=== PATIENT | female | born 1980 | race Caucasian/White ===

== ENCOUNTER 2019-05-30 09:16 | Emergency (ER) | payer BC ==
[~2019-05-30] VITALS: Ht 162.6 cm; Wt 63.5 kg
--- NOTE | 2019-05-30 09:20 | NUR ---
Attempted to triage pt, pt was not found in ER waiting room.
--- NOTE | 2019-05-30 09:47 | NUR ---
ERMD at bedside for MSE
[2019-05-30] MEDS ORDERED: METR500T PO (09:52)
[2019-05-30] MEDS ORDERED: AMOX500C2 PO (09:52)
[2019-05-30 09:58] LABS: BASOPHILS % (AUTO) 0.5 % (0.0-2.0); HEMATOCRIT 42.6 % (31.2-41.9); HEMOGLOBIN 13.7 g/dL (10.9-14.3); LYMPHOCYTES # (AUTO) 0.7 K/uL (20.0-40.0); LYMPHOCYTES % (AUTO) 7.9 % (20.5-51.5); MEAN CORPUSCULAR HEMOGLOBIN 26.3 uug (24.7-32.8); MEAN CORPUSCULAR HGB CONC 32 g/dL (32.3-35.6); MEAN CORPUSCULAR VOLUME 81.7 fL (75.5-95.3); MONOCYTES # (AUTO) 0.2 K/uL (2.0-10.0); MONOCYTES % (AUTO) 2.8 % (0.0-11.0); NEUTROPHILS # (AUTO) 7.4 K/uL (1.8-8.9); NEUTROPHILS % (AUTO) 88.8 % (38.5-71.5); PLATELET COUNT (AUTO) 286 K/uL (179-408); RED BLOOD CELL COUNT(AUTO) 5.21 MIL/uL (3.63-4.92); WHITE BLOOD COUNT (AUTO) 8.3 K/uL (3.8-11.8)
[2019-05-30] MEDS ORDERED: PANTOPRAZOLE SODIUM 40 MG VIAL IV ONE (10:00)
[2019-05-30] MEDS ORDERED: ONDANSETRON 4 MG/2 ML VIAL IV ONE (10:00)
[2019-05-30] MEDS ORDERED: IV NORMAL SALINE 1000 ML BAG IV ONE (10:00)
[2019-05-30] MEDS ORDERED: ONDANSETRON 4 MG/2 ML VIAL ONE (10:04)
[2019-05-30] MEDS ORDERED: PANTOPRAZOLE SODIUM 40 MG VIAL ONE (10:05)
[2019-05-30 10:06] LABS: CARBON DIOXIDE 22 mmol/L (21-32); CHLORIDE 96 mmol/L (98-107); CREATININE 0.9 mg/dL (0.6-1.3); GLUCOSE 76 mg/dL (74-106); POTASSIUM 3.6 mmol/L (3.5-5.1); UREA NITROGEN, BLOOD 14 mg/dL (7-18)
[2019-05-30 10:20] LABS: ALANINE AMINOTRANSFERASE 29 U/L (14-59); ALKALINE PHOSPHATASE 45 U/L (50-136); ASPARTATE AMINOTRANSFERASE 24 U/L (15-37); BILIRUBIN,DIRECT 0.1 mg/dL (0.0-0.2); BILIRUBIN,TOTAL 0.5 mg/dL (0.2-1.0); LIPASE 114 U/L (73-393)
--- NOTE | 2019-05-30 10:47 | NUR ---
Patient discharged to home in stable conditon. Written and verbal after care instructions given. Patient verbalizes understanding of instructions. Patient ambulated with stable gait. IV removed. Catheter intact and site benign. Pressure and 4x4 gauze applied to site. No bleeding noted.
[2019-05-30 10:48] VITALS: BP 125/79
== END 2019-05-30 10:53 | disposition home or self-care (01) ==
LOC: ER 09:16
DX: R11.2 Nausea with vomiting, unspecified (principal); R19.7 Diarrhea, unspecified; R10.13 Epigastric pain; Z79.899 Other long term (current) drug therapy; Z79.2 Long term (current) use of antibiotics
CPT/HCPCS: 36415; 80048; 80076; 83690; 84702; 85025; 96361; 96374; 96375; 99284; C9113; J2405; A4663; J7030